=== PATIENT | female | born 1985 | race Caucasian/White ===

== ENCOUNTER 2017-01-17 10:54 | Emergency (ER) | payer MEDICAID ==
[~2017-01-17] VITALS: Ht 160 cm; Wt 114.7 kg
[~2017-01-17 10:54] MED LIST: CLON1TAB23 PO; DIVA250T PO; LEVE100020 PO; LEVE250T28 PO
[2017-01-17 11:09] VITALS: BP 138/68
[2017-01-17] MEDS ORDERED: METHOCARBAMOL 750 MG TABLET ONE (11:28)
[2017-01-17] MEDS ORDERED: HYDROcodone/APAP 5/325 TABLET ONE (11:28)
[2017-01-17] MEDS ORDERED: KETOROLAC 30 MG/1 ML ONE (11:29)
[2017-01-17] MEDS ORDERED: METHOCARBAMOL 750 MG TABLET PO ONE (11:30)
[2017-01-17] MEDS ORDERED: KETOROLAC 30 MG/1 ML IM ONE (11:30)
[2017-01-17] MEDS ORDERED: HYDROcodone/APAP 5/325 TABLET PO ONE (11:30)
[2017-01-17] MEDS ORDERED: DIAZEPAM 5 MG TABLET PO ONE (12:30)
[2017-01-17] MEDS ORDERED: LEVETIRACETAM 500 MG TABLET PO ONE (12:30)
[2017-01-17] MEDS ORDERED: LORazepam 2 MG/ML, 1ML ONE (13:04)
[2017-01-17] MEDS ORDERED: LORazepam 2 MG/ML, 1ML IVPush ONE (13:30)
[2017-01-17] MEDS ORDERED: MORPHINE SULFATE 4 MG/ML, 1ML ONE (14:19)
[2017-01-17] MEDS ORDERED: MORPHINE SULFATE 4 MG/ML, 1ML IVPush ONE (14:30)
== END 2017-01-17 14:32 | disposition home or self-care (01) ==
LOC: ED 12:37
DX: S13.4XXA Sprain of ligaments of cervical spine, initial encounter (principal); M47.22 Other spondylosis with radiculopathy, cervical region; M50.10 Cervical disc disorder with radiculopathy, unspecified cervical region; G40.909 Epilepsy, unspecified, not intractable, without status epilepticus; F41.9 Anxiety disorder, unspecified; F43.10 Post-traumatic stress disorder, unspecified; F17.200 Nicotine dependence, unspecified, uncomplicated; F15.10 Other stimulant abuse, uncomplicated; F60.3 Borderline personality disorder; Z88.1 Allergy status to other antibiotic agents; Z86.19 Personal history of other infectious and parasitic diseases; Z98.890 Other specified postprocedural states; V89.2XXA Person injured in unspecified motor-vehicle accident, traffic, initial encounter; Y93.89 Activity, other specified; Y99.8 Other external cause status; Y92.410 Unspecified street and highway as the place of occurrence of the external cause
CPT/HCPCS: 72050; 72141; 96372; 96374; 96375; 99284; J1885; J2060; J7512

== ENCOUNTER 2017-01-18 18:54 | Emergency (ER) | payer MEDICAID ==
[~2017-01-18] VITALS: Ht 160 cm; Wt 101.0 kg
[2017-01-18] MEDS ORDERED: SODIUM CHLORIDE 0.9% 1,000ML IVBOLUS ONE (20:00)
[2017-01-18] MEDS ORDERED: ONDANSETRON 2MG/ML, 2ML IVPush ONE (20:00)
[2017-01-18] MEDS ORDERED: ONDANSETRON 2MG/ML, 2ML ONE (20:39)
[2017-01-18] MEDS ORDERED: MORPHINE SULFATE 4 MG/ML, 1ML ONE ×2 (20:39→21:32)
[2017-01-18] MEDS: MORPHINE SULFATE 4 MG/ML, 1ML IVPush PRN ×2 (20:44→21:42)
[2017-01-18 21:00] LABS: HEMOGLOBIN 12.7 g/dL (11.7-16.4)
[2017-01-18 21:06] LABS: BLOOD UREA NITROGEN 16 mg/dL (7-18)
[2017-01-18 22:35] VITALS: BP 126/72
== END 2017-01-18 22:39 | disposition home or self-care (01) ==
LOC: ED 20:47
DX: S16.1XXA Strain of muscle, fascia and tendon at neck level, initial encounter (principal); G89.29 Other chronic pain; R11.2 Nausea with vomiting, unspecified; G40.909 Epilepsy, unspecified, not intractable, without status epilepticus; F41.1 Generalized anxiety disorder; F60.3 Borderline personality disorder; F43.10 Post-traumatic stress disorder, unspecified; M19.90 Unspecified osteoarthritis, unspecified site; X58.XXXA Exposure to other specified factors, initial encounter; Y93.89 Activity, other specified; Y99.8 Other external cause status; Y92.89 Other specified places as the place of occurrence of the external cause
CPT/HCPCS: 36415; 80048; 82040; 85025; 93005; 96361; 96374; 96375; 96376; 99285; J2405; J7030

== ENCOUNTER 2017-01-21 15:22 | Emergency (ER) | payer MEDICAID ==
[~2017-01-21] VITALS: Ht 160 cm; Wt 120.7 kg
[2017-01-21 15:30] VITALS: BP 125/94
[2017-01-21] MEDS ORDERED: HYDROcodone/APAP 5/325 TABLET PO ONE (17:00)
[2017-01-21] MEDS ORDERED: HYDROcodone/APAP 5/325 TABLET ONE (17:09)
== END 2017-01-21 17:23 | disposition home or self-care (01) ==
LOC: ED 16:14
DX: M47.892 Other spondylosis, cervical region (principal); G89.29 Other chronic pain; Z88.1 Allergy status to other antibiotic agents
CPT/HCPCS: 99283

== ENCOUNTER 2017-02-01 17:49 | Emergency (ER) | payer MEDICAID ==
[~2017-02-01] VITALS: Ht 160 cm; Wt 100.0 kg
[2017-02-01] MEDS ORDERED: HYDROmorphone 1 MG/ML, 1ML ONE (18:26)
[2017-02-01] MEDS ORDERED: HYDROmorphone 1 MG/ML, 1ML IM ONE (18:30)
[2017-02-01] MEDS ORDERED: KETOROLAC 30 MG/1 ML IM ONE (19:30)
[2017-02-01] MEDS ORDERED: KETOROLAC 30 MG/1 ML ONE (19:30)
[2017-02-01 19:38] VITALS: BP 138/79
[2017-02-01 19:45] LABS: HEMOGLOBIN 13.7 g/dL (11.7-16.4)
[2017-02-01 19:56] LABS: BLOOD UREA NITROGEN 14 mg/dL (7-18)
== END 2017-02-01 20:12 | disposition left against medical advice (07) ==
LOC: ED 19:13
DX: S29.012A Strain of muscle and tendon of back wall of thorax, initial encounter (principal); B18.2 Chronic viral hepatitis C; G40.909 Epilepsy, unspecified, not intractable, without status epilepticus; F43.10 Post-traumatic stress disorder, unspecified; F41.1 Generalized anxiety disorder; X50.9XXA Other and unspecified overexertion or strenuous movements or postures, initial encounter; Y93.89 Activity, other specified; Y92.89 Other specified places as the place of occurrence of the external cause; Y99.8 Other external cause status
CPT/HCPCS: 36415; 71101; 72072; 80048; 81003; 82040; 85025; 85651; 96372; 99285; J1170; J1885

== ENCOUNTER 2017-03-04 15:13 | Emergency (ER) | payer MEDICAID ==
[~2017-03-04] VITALS: Ht 160 cm; Wt 113.0 kg
[2017-03-04 15:25] VITALS: BP 113/68
[2017-03-04] MEDS ORDERED: CLON1TAB23 PO (15:44)
[2017-03-04] MEDS ORDERED: GABA300C10 PO (15:44)
[2017-03-04] MEDS ORDERED: METH750T87 PO (15:44)
[2017-03-04] MEDS ORDERED: OXYC-229 PO (15:44)
[2017-03-04] MEDS ORDERED: SULF1TAB3 PO (15:44)
[2017-03-04] MEDS ORDERED: NAPR500T PO (15:44)
[2017-03-04] MEDS ORDERED: LIDOCAINE-MPF 2% ,5ML ONE (15:54)
[2017-03-04] MEDS ORDERED: ONDANSETRON ODT 4 MG ONE (15:54)
[2017-03-04] MEDS ORDERED: NAPROXEN 500 MG TABLET PO ONE (16:00)
[2017-03-04] MEDS ORDERED: ONDANSETRON ODT 4 MG PO ONE (16:00)
[2017-03-04] MEDS ORDERED: LIDOCAINE 2%, 10ML INFIL ONE (16:00)
[2017-03-04] MEDS ORDERED: LIDOCAINE 1%, 20ML ONE ×3 (16:51→17:51)
[2017-03-04] MEDS ORDERED: BACITRACIN ZINC OINT 500U/GM, 0.9 GM ONE (18:16)
== END 2017-03-04 18:33 ==
LOC: ED 18:15
DX: S31.114A Laceration without foreign body of abdominal wall, left lower quadrant without penetration into peritoneal cavity, initial encounter (principal); B18.2 Chronic viral hepatitis C; G40.909 Epilepsy, unspecified, not intractable, without status epilepticus; F43.10 Post-traumatic stress disorder, unspecified; S71.111A Laceration without foreign body, right thigh, initial encounter; W27.8XXA Contact with other nonpowered hand tool, initial encounter; Y93.89 Activity, other specified; Y92.009 Unspecified place in unspecified non-institutional (private) residence as the place of occurrence of the external cause; Y99.8 Other external cause status; Z88.1 Allergy status to other antibiotic agents
CPT/HCPCS: 12002; 12032; 99284; Q0162

== ENCOUNTER 2017-05-10 13:17 | Emergency (ER) | payer MEDICAID ==
[~2017-05-10] VITALS: Ht 170.2 cm; Wt 80.0 kg
[~2017-05-10 13:17] MED LIST changes: +GABA300C10 PO; +METH750T87 PO; +NAPR500T PO; +OXYC-229 PO; +SULF1TAB3 PO
[2017-05-10] MEDS ORDERED: LIDOCAINE 1%, 20ML INFIL ONE (13:30)
[2017-05-10] MEDS ORDERED: HYDROmorphone 1 MG/ML, 1ML ONE ×2 (13:51→16:26)
[2017-05-10] MEDS ORDERED: PROMETHAZINE 25 MG/ML, 1ML ONE (13:51)
[2017-05-10] MEDS ORDERED: LORazepam 1MG TABLET ONE (13:51)
[2017-05-10] MEDS ORDERED: BUPIVACAINE/PF 0.25% INFIL ONE (14:00)
[2017-05-10] MEDS ORDERED: PROMETHAZINE 25 MG/ML, 1ML IM ONE (14:00)
[2017-05-10] MEDS ORDERED: HYDROmorphone 1 MG/ML, 1ML IM ONE (14:00)
[2017-05-10] MEDS ORDERED: LORazepam 1MG TABLET PO ONE (14:00)
[2017-05-10 14:01] LABS: ASPARTATE AMINO TRANSFERASE 15 U/L (15-37); BLOOD UREA NITROGEN 7 mg/dL (7-18)
[2017-05-10 14:08] LABS: ACETAMINOPHEN < 2 mcg/mL (10-30)
[2017-05-10] MEDS ORDERED: BUPIVACAINE/PF 0.5% ONE (14:17)
[2017-05-10 15:24] LABS: DAU SCREEN DISCLAIMER
[2017-05-10 15:45] LABS: PATH.CAST-FLAG NOT PRESENT; SPERM-FLAG NOT PRESENT; SRC-FLAG NOT PRESENT; XTAL-FLAG NOT PRESENT; YLC-FLAG NOT PRESENT
[2017-05-10 17:10] VITALS: BP 133/82
[2017-05-13] MEDS ORDERED: CITA40TA12 PO (20:37)
[2017-05-13] MEDS ORDERED: PHEN100C PO (20:37)
[2017-05-13] MEDS ORDERED: TRAZ100T15 PO (20:37)
[2017-05-13] MEDS ORDERED: ZIPR40CA2 PO (20:37)
== END 2017-05-10 17:12 | disposition home or self-care (01) ==
LOC: ED 16:01
DX: S31.119A Laceration without foreign body of abdominal wall, unspecified quadrant without penetration into peritoneal cavity, initial encounter (principal); F32.9 Major depressive disorder, single episode, unspecified; F43.10 Post-traumatic stress disorder, unspecified; W26.8XXA Contact with other sharp object(s), not elsewhere classified, initial encounter; Y93.89 Activity, other specified; Y92.89 Other specified places as the place of occurrence of the external cause; Y99.8 Other external cause status
CPT/HCPCS: 13101; 13102; 36415; 80053; 80185; 80307; 80329; 81001; 85025; 96372; 99285; J1170; J2550; G0480

== ENCOUNTER 2017-05-28 08:18 | Inpatient (IN) | payer MEDICAID ==
[2017-05-26 14:53] VITALS: BP 103/67
[~2017-05-28] VITALS: Ht 160 cm; Wt 128.0 kg
[~2017-05-28 08:18] MED LIST changes: +BACITRACIN OINT 500U/GM, 15 GM ONE; +BUPIVACAINE/PF-EPI 0.5% 1:200K ONE; +CITA40TA12 PO; +CLON2TAB PO; +CRAN500T2 PO; +HYDR-3240 PO; +METH500T97 PO; +MIRTAZAPINE PO; +MULT1TAB60 PO; +PHEN100C PO; +THROMBIN 5,000 UNIT VIAL TP ONE; +TRAZ100T15 PO; +ZIPR40CA2 PO
[2017-05-28] MEDS ORDERED: FENTANYL PF 250 MCG/5ML ONE (09:15)
[2017-05-28] MEDS ORDERED: KETAMINE 10 MG/ML, 20ML ONE (09:15)
[2017-05-28] MEDS ORDERED: MIDAZOLAM 1 MG/ML, 2ML ONE (09:15)
[2017-05-28] MEDS ORDERED: REMIFENTANIL 2 MG ONE (09:16)
[2017-05-28] MEDS ORDERED: LACTATED RINGERS 1,000 ML IV SCH (09:24)
[2017-05-28] MEDS ORDERED: LIDOCAINE 1%, 2ML SQ PRN (09:30)
[2017-05-28] MEDS ORDERED: CLINDAMYCIN 150 MG/ML, 6ML ONE (10:17)
[2017-05-28 10:20] LABS: HCG UR OBC PASS
[2017-05-28] MEDS ORDERED: SUCCINYLCHOLINE 20 MG/ML, 10ML ONE (10:24)
[2017-05-28] MEDS ORDERED: ONDANSETRON 2MG/ML, 2ML ONE ×2 (10:24→12:16)
[2017-05-28] MEDS ORDERED: PROPOFOL 10 MG/ML, 50ML ONE (10:24)
[2017-05-28] MEDS ORDERED: ROCURONIUM 10 MG/ML ONE (10:24)
[2017-05-28] MEDS ORDERED: PROPOFOL 10 MG/ML, 20ML ONE (10:24)
[2017-05-28] MEDS ORDERED: DEXAMETHASONE 4 MG/ML, 1ML ONE (10:24)
[2017-05-28] MEDS ORDERED: ALBUTEROL SULFATE 200 PUFFS/8.5 GR INH ONE (10:24)
[2017-05-28] MEDS ORDERED: EPHEDRINE 50 MG/ML, 1ML ONE (10:24)
[2017-05-28] MEDS ORDERED: BISACODYL 10 MG SUPP PR PRN (10:30)
[2017-05-28] MEDS ORDERED: PHARMACY MAY ADJ FOR RENAL FX MC PRN (10:30)
[2017-05-28] MEDS ORDERED: ONDANSETRON 2MG/ML, 2ML IVPush PRN (10:30)
[2017-05-28] MEDS ORDERED: MAGNESIUM HYDROXIDE 8%, 30ML UDC PO PRN (10:30)
[2017-05-28] MEDS ORDERED: SENNA/DOCUSATE TABLET PO PRN (10:30)
[2017-05-28] MEDS ORDERED: DIPHENHYDRAMINE 50 MG/ML, 1ML IVPush PRN (10:30)
[2017-05-28] MEDS: CLINDAMYCIN PMX 900MG/50ML 50 ML IV SCH ×2 (11:00→19:11)
[2017-05-28] MEDS ORDERED: OXYcodone 5 MG/5 ML ORAL.SOL UDC PO PRN (11:30)
[2017-05-28] MEDS ORDERED: ACETAMINOPHEN 325 MG TABLET PO PRN (11:30)
[2017-05-28] MEDS ORDERED: ACETAMINOPHEN 325 MG/10.15 ML UDC ONE (12:16)
[2017-05-28] MEDS ORDERED: FENTANYL PF 100 MCG/2ML ONE (12:16)
[2017-05-28] MEDS ORDERED: ACETAMINOPHEN 650 MG/20.3 ML UDC ONE (12:16)
[2017-05-28] MEDS ORDERED: OXYcodone 5 MG/5 ML ORAL.SOL UDC ONE (12:16)
[2017-05-28] MEDS: FENTANYL PF 100 MCG/2ML IV PRN ×2 (12:25→12:35)
[2017-05-28] MEDS ORDERED: HYDROmorphone 2 MG/ML, 1ML ONE (12:38)
[2017-05-28] MEDS: HYDROmorphone 1 MG/ML, 1ML IV PRN ×2 (12:45→13:00)
[2017-05-28] MEDS: morphine SULFATE 10 MG/ML, 1ML IVPush PRN ×2 (14:34→19:40)
[2017-05-28] MEDS: PROMETHAZINE 25 MG/ML, 1ML IM PRN (14:34)
[2017-05-28] MEDS ORDERED: [UNRECOGNIZED DRUG - REMARK] MC SCH (15:30)
[2017-05-28] MEDS: GABAPENTIN 300 MG CAPSULE PO SCH ×2 (16:00→21:51)
[2017-05-28] MEDS: OXYcodone/APAP 5/325MG TABLET PO PRN ×2 (16:47→21:46)
[2017-05-28] MEDS: D5%-0.9% NACL+KCL 20MEQ 1,000 ML IV SCH (19:41)
[2017-05-28 19:59] VITALS: BP 119/82
[2017-05-28] MEDS ORDERED: MIRTAZAPINE PO SCH (21:00)
[2017-05-28] MEDS ORDERED: MIRTAZAPINE 30 MG TAB.RAPDIS PO SCH (21:00)
[2017-05-28] MEDS: PHENYTOIN 100 MG CAPSULE PO SCH (21:45)
[2017-05-28] MEDS: METHOCARBAMOL 750 MG TABLET PO PRN (21:46)
[2017-05-28] MEDS: LEVETIRACETAM 500 MG TABLET PO SCH (21:46)
[2017-05-29] MEDS: OXYcodone/APAP 5/325MG TABLET PO PRN ×2 (01:05→05:50)
[2017-05-29] MEDS: morphine SULFATE 10 MG/ML, 1ML IVPush PRN (01:11)
[2017-05-29 01:12] VITALS: BP 119/79
[2017-05-29 02:41] VITALS: BP 100/69
[2017-05-29] MEDS: CLINDAMYCIN PMX 900MG/50ML 50 ML IV SCH (03:22)
[2017-05-29] MEDS: PROMETHAZINE 25 MG/ML, 1ML IM PRN (03:29)
[2017-05-29] MEDS: D5%-0.9% NACL+KCL 20MEQ 1,000 ML IV SCH (04:58)
[2017-05-29] MEDS ORDERED: OXYC-302 PO (05:05)
[2017-05-29] MEDS ORDERED: CLIN300C93 PO (05:06)
[2017-05-29] MEDS: METHOCARBAMOL 750 MG TABLET PO PRN (05:51)
[2017-05-29] MEDS: LEVETIRACETAM 500 MG TABLET PO SCH (08:14)
[2017-05-29] MEDS: PHENYTOIN 100 MG CAPSULE PO SCH (08:14)
[2017-05-29] MEDS ORDERED: GABAPENTIN 100 MG CAPSULE PO SCH (09:00)
== END 2017-05-29 08:00 | disposition home or self-care (01) | DRG 472 ==
LOC: OUT 08:18 → ORIP 10:25 → 4NOR 13:52
PROVIDERS: ADMIT Orthopaedic Surgery Orthopaedic Surgery of the Spine; ATTEND Orthopaedic Surgery Orthopaedic Surgery of the Spine
PROC: 0RB30ZZ Excision of Cervical Vertebral Disc, Open Approach (ICD-10-PCS; 2017-05-28)
PROC: 4A11X4G Monitoring of Peripheral Nervous Electrical Activity, Intraoperative, External Approach (ICD-10-PCS; 2017-05-28)
PROC: 0RG10A0 Fusion of Cervical Vertebral Joint with Interbody Fusion Device, Anterior Approach, Anterior Column, Open Approach (ICD-10-PCS; principal; 2017-05-28 10:30)
DX: M48.02 Spinal stenosis, cervical region (principal); Z68.42 Body mass index [BMI] 45.0-49.9, adult; E66.01 Morbid (severe) obesity due to excess calories; G40.909 Epilepsy, unspecified, not intractable, without status epilepticus; G89.29 Other chronic pain; F17.210 Nicotine dependence, cigarettes, uncomplicated; Z87.11 Personal history of peptic ulcer disease
CPT/HCPCS: 72040; 81025; 93005; 95938; 95941; C1713; J1100; J1170; J2250; J2405; J2550; J2704; J3010; J0330; J2270; J3480

== ENCOUNTER 2017-05-30 16:45 | Emergency (ER) | payer MEDICAID ==
[~2017-05-30] VITALS: Ht 160 cm; Wt 121.2 kg
[~2017-05-30 16:45] MED LIST changes: -BACITRACIN OINT 500U/GM, 15 GM ONE; -BUPIVACAINE/PF-EPI 0.5% 1:200K ONE; +CLIN300C93 PO; +OXYC-302 PO; -THROMBIN 5,000 UNIT VIAL TP ONE
[2017-05-30] MEDS ORDERED: ONDANSETRON ODT 4 MG ONE ×2 (17:29→19:01)
[2017-05-30] MEDS ORDERED: HYDROmorphone 2 MG/ML, 1ML ONE (17:29)
[2017-05-30] MEDS ORDERED: HYDROmorphone 1 MG/ML, 1ML IVPush PRN (17:30)
[2017-05-30] MEDS ORDERED: ONDANSETRON 2MG/ML, 2ML IVPush ONE (17:30)
[2017-05-30] MEDS ORDERED: ONDANSETRON ODT 4 MG PO ONE ×2 (18:00→19:00)
[2017-05-30] MEDS ORDERED: HYDROmorphone 1 MG/ML, 1ML IM ONE (18:00)
[2017-05-30] MEDS ORDERED: DEXAMETHASONE 4 MG TABLET PO ONE (19:00)
[2017-05-30] MEDS ORDERED: DEXAMETHASONE 4 MG/ML, 5ML ONE (19:01)
[2017-05-30 19:08] VITALS: BP 121/61
== END 2017-05-30 19:14 | disposition home or self-care (01) ==
LOC: ED 17:35
DX: G89.18 Other acute postprocedural pain (principal); M54.2 Cervicalgia; F17.200 Nicotine dependence, unspecified, uncomplicated; F43.10 Post-traumatic stress disorder, unspecified; M54.12 Radiculopathy, cervical region; Z86.19 Personal history of other infectious and parasitic diseases
CPT/HCPCS: 72040; 96372; 99284; J1170; Q0162

== ENCOUNTER 2017-06-07 18:49 | Emergency (ER) | payer MEDICAID ==
[~2017-06-07] VITALS: Ht 160 cm; Wt 117.0 kg
[2017-06-07] MEDS ORDERED: HYDROmorphone 1 MG/ML, 1ML ONE ×2 (19:21→20:16)
[2017-06-07] MEDS ORDERED: ONDANSETRON ODT 4 MG ONE (19:22)
[2017-06-07] MEDS ORDERED: KETOROLAC 30 MG/1 ML ONE (19:22)
[2017-06-07] MEDS ORDERED: KETOROLAC 30 MG/1 ML IM ONE (19:30)
[2017-06-07] MEDS ORDERED: ONDANSETRON ODT 4 MG PO ONE (19:30)
[2017-06-07] MEDS ORDERED: HYDROmorphone 1 MG/ML, 1ML IM ONE ×2 (19:30→20:30)
[2017-06-07 20:21] VITALS: BP 105/50
== END 2017-06-07 20:46 | disposition home or self-care (01) ==
LOC: ED 19:22
DX: M96.89 Other intraoperative and postprocedural complications and disorders of the musculoskeletal system (principal); M54.2 Cervicalgia; G43.909 Migraine, unspecified, not intractable, without status migrainosus; F43.10 Post-traumatic stress disorder, unspecified; F32.9 Major depressive disorder, single episode, unspecified
CPT/HCPCS: 96372; 99284; J1170; J1885; Q0162

== ENCOUNTER 2017-06-10 10:54 | Emergency (ER) | payer MEDICAID ==
[~2017-06-10] VITALS: Ht 160 cm; Wt 122.6 kg
[2017-06-10 10:58] VITALS: BP 119/79
[2017-06-10] MEDS ORDERED: MORPHINE SULFATE 4 MG/ML, 1ML IVPush PRN (12:30)
[2017-06-10] MEDS ORDERED: ONDANSETRON 2MG/ML, 2ML IVPush ONE (12:30)
[2017-06-10] MEDS ORDERED: SODIUM CHLORIDE 0.9% 1,000ML IVBOLUS ONE (12:30)
[2017-06-10] MEDS ORDERED: SODIUM CHLORIDE FLUSH 10ML SYR IVF ONE (12:30)
== END 2017-06-10 13:18 | disposition home or self-care (01) ==
LOC: ED 11:58
DX: T81.30XA Disruption of wound, unspecified, initial encounter (principal); G40.909 Epilepsy, unspecified, not intractable, without status epilepticus
CPT/HCPCS: 99281

== ENCOUNTER 2017-06-12 09:54 | Emergency (ER) | payer MEDICAID ==
[~2017-06-12] VITALS: Ht 160 cm; Wt 111.4 kg
[2017-06-12] MEDS ORDERED: HYDR-882 PO (10:21)
[2017-06-12] MEDS ORDERED: SODIUM CHLORIDE FLUSH 10ML SYR IVF ONE (10:30)
[2017-06-12] MEDS ORDERED: ONDANSETRON 2MG/ML, 2ML IVPush ONE (10:30)
[2017-06-12 11:00] LABS: BLOOD UREA NITROGEN 10 mg/dL (7-18)
[2017-06-12] MEDS ORDERED: ONDANSETRON ODT 4 MG ONE (11:06)
[2017-06-12] MEDS ORDERED: KETOROLAC 30 MG/1 ML ONE (11:28)
[2017-06-12] MEDS ORDERED: KETOROLAC 30 MG/1 ML IM ONE (11:30)
[2017-06-12] MEDS ORDERED: ONDANSETRON ODT 4 MG PO ONE (11:30)
[2017-06-12 11:38] LABS: HEMATOCRIT 42.3 % (34.6-47.8); HEMOGLOBIN 14.2 g/dL (11.7-16.4); WHITE BLOOD COUNT 11.3 x10^3/uL (3.4-10)
[2017-06-12 11:44] LABS: DIFF TOTAL CELLS COUNTED 100 CELL DIFF
[2017-06-12 11:49] LABS: VERIFY COUNTS? YES
[2017-06-12] MEDS ORDERED: PHENYTOIN SODIUM 1,000 MG in SODIUM CHLORIDE 0.9% 100 ML IV ONE (12:00)
[2017-06-12] MEDS ORDERED: FILTER 0.22 MICRON IV ONE (12:00)
[2017-06-12] MEDS ORDERED: PHENYTOIN 100 MG CAPSULE PO ONE (12:30)
[2017-06-12 12:31] VITALS: BP 121/76
== END 2017-06-12 12:33 | disposition home or self-care (01) ==
LOC: ED 11:30
DX: G40.909 Epilepsy, unspecified, not intractable, without status epilepticus (principal); T81.31XA Disruption of external operation (surgical) wound, not elsewhere classified, initial encounter; Z72.9 Problem related to lifestyle, unspecified; F17.200 Nicotine dependence, unspecified, uncomplicated
CPT/HCPCS: 36415; 70450; 72125; 80048; 80185; 82040; 85025; 93005; 96372; 99285; J1885; Q0162

== ENCOUNTER 2017-10-13 14:25 | Observation (INO) | payer MEDICAID ==
[~2017-10-13] VITALS: Ht 160 cm; Wt 110.0 kg
[~2017-10-13 14:25] MED LIST changes: +CLIN300C8 PO; -CLIN300C93 PO; +HYDR-882 PO; -OXYC-229 PO; +OXYC-307 PO; +SULF-169 PO; -SULF1TAB3 PO
[2017-10-13] MEDS ORDERED: ONDANSETRON 2MG/ML, 2ML ONE (14:55)
[2017-10-13] MEDS ORDERED: MORPHINE SULFATE 4 MG/ML, 1ML ONE ×3 (14:55→21:08)
[2017-10-13] MEDS: MORPHINE SULFATE 4 MG/ML, 1ML IVPush PRN ×2 (14:58→19:55)
[2017-10-13] MEDS ORDERED: SODIUM CHLORIDE FLUSH 10ML SYR IVF ONE (15:00)
[2017-10-13] MEDS ORDERED: ONDANSETRON 2MG/ML, 2ML IVPush ONE (15:00)
[2017-10-13 15:41] LABS: HEMATOCRIT 41.9 % (34.6-47.8); WHITE BLOOD COUNT 8.6 x10^3/uL (3.4-10)
[2017-10-13 15:52] LABS: ASPARTATE AMINO TRANSFERASE 18 U/L (15-37); BLOOD UREA NITROGEN 6 mg/dL (7-18)
[2017-10-13 15:59] LABS: ACETAMINOPHEN < 2 mcg/mL (10-30)
[2017-10-13] MEDS ORDERED: OMNIPAQUE 350 MG/ML, 100ML BOTTLE ONE (16:45)
[2017-10-13] MEDS ORDERED: ZIPRASIDONE 20 MG INJ IM PRN (17:00)
[2017-10-13] MEDS ORDERED: ONDANSETRON ODT 4 MG PO PRN (17:00)
[2017-10-13] MEDS ORDERED: POLYETHYLENE GLYCOL 17 GM PACKET PO PRN (17:00)
[2017-10-13] MEDS ORDERED: ACETAMINOPHEN 325 MG TABLET PO PRN (17:00)
[2017-10-13] MEDS ORDERED: ZIPRASIDONE 20MG CAPSULE PO PRN (17:00)
[2017-10-13] MEDS ORDERED: DOCUSATE 100 MG CAPSULE PO PRN (17:00)
[2017-10-13] MEDS ORDERED: MORPHINE SULFATE 4 MG/ML, 1ML IVPush PRN (19:00)
[2017-10-13] MEDS ORDERED: BACITRACIN ZINC OINT 500U/GM, 0.9 GM ONE (20:27)
[2017-10-13] MEDS ORDERED: MIRTAZAPINE PO SCH (21:00)
[2017-10-13] MEDS ORDERED: TEMPLATE NON-FORMULARY MED. (Levetiracetam** (Keppra**) 1,000 MG) PO SCH (21:00)
[2017-10-13] MEDS ORDERED: PHENYTOIN 100 MG CAPSULE PO SCH (21:00)
[2017-10-13] MEDS ORDERED: GABAPENTIN 300 MG CAPSULE PO SCH (21:00)
[2017-10-13] MEDS ORDERED: CLONAZEPAM 2 MG PO SCH (21:00)
[2017-10-13 21:40] LABS: DAU SCREEN DISCLAIMER
[2017-10-13 22:00] VITALS: BP 98/67
== END 2017-10-13 22:56 | disposition home or self-care (01) ==
LOC: ED 16:35 → INTOOBSV 16:45 → EDIP 16:45 → SUATTDRO 16:45
PROVIDERS: ADMIT Family Medicine; ATTEND Family Medicine
DX: S31.114A Laceration without foreign body of abdominal wall, left lower quadrant without penetration into peritoneal cavity, initial encounter (principal); B18.2 Chronic viral hepatitis C; E66.9 Obesity, unspecified; F15.90 Other stimulant use, unspecified, uncomplicated; F17.210 Nicotine dependence, cigarettes, uncomplicated; F32.9 Major depressive disorder, single episode, unspecified; F41.1 Generalized anxiety disorder; F43.10 Post-traumatic stress disorder, unspecified; F60.3 Borderline personality disorder; G40.909 Epilepsy, unspecified, not intractable, without status epilepticus; G89.29 Other chronic pain; M51.36 Other intervertebral disc degeneration, lumbar region; J44.9 Chronic obstructive pulmonary disease, unspecified; X78.8XXA Intentional self-harm by other sharp object, initial encounter; Y93.89 Activity, other specified; Y92.89 Other specified places as the place of occurrence of the external cause; Y99.8 Other external cause status; Z90.49 Acquired absence of other specified parts of digestive tract
CPT/HCPCS: 12032; 36415; 74177; 80053; 80307; 80329; 81003; 84703; 85025; 96374; 96375; 96376; 99285; G0378; J2405; Q9967; 12053; G0479; G0480

== ENCOUNTER 2017-10-30 07:30 | Inpatient (IN) | payer MEDICAID ==
[~2017-10-30] VITALS: Ht 160 cm; Wt 109.1 kg
[~2017-10-30 07:30] MED LIST changes: +BACITRACIN 50,000 UNIT ONE; +BUPIVACAINE/PF 0.5% ONE; +EPINEPHRINE 1 MG/ML, 1ML ONE; +NAPR-856 PO; -NAPR500T PO; +THROMBIN 5,000 UNIT VIAL TP ONE; +TRANEXAMIC ACID 100 MG/ML, 10ML ONE; +VANCOMYCIN 1,000 MG ONE
[2017-10-30 10:39] VITALS: BP 93/54
[2017-10-30 10:43] LABS: HCG UR SG 1.034 (1.003-1.030)
[2017-10-30 13:47] LABS: AMPHETAMINE SCREEN, URINE Positive (Negative); BARBITURATE SCREEN, URINE Negative (Negative); BENZODIAZEPINE SCREEN, URINE Positive (Negative); CANNABINOID SCREEN, URINE Positive (Negative); COCAINE SCREEN, URINE Negative (Negative); METHADONE SCREEN, URINE Negative (Negative); OPIATE SCREEN, URINE Positive (Negative)
== END 2017-10-30 10:45 | disposition home or self-care (01) | DRG 30 ==
LOC: ORIP 09:11
PROVIDERS: ADMIT Orthopaedic Surgery Orthopaedic Surgery of the Spine; ATTEND Orthopaedic Surgery Orthopaedic Surgery of the Spine
PROC: 0RG10AJ Fusion of Cervical Vertebral Joint with Interbody Fusion Device, Posterior Approach, Anterior Column, Open Approach (ICD-10-PCS; principal; 2017-10-30)
PROC: 01N10ZZ Release Cervical Nerve, Open Approach (ICD-10-PCS; 2017-10-30)
DX: M54.12 Radiculopathy, cervical region (principal); G40.909 Epilepsy, unspecified, not intractable, without status epilepticus
CPT/HCPCS: 80307; 81025; J0171; J3370; J3490; G0479

== ENCOUNTER 2018-07-09 03:07 | Emergency (ER) | payer MEDICAID, OTHER ==
[~2018-07-09] VITALS: Ht 160 cm; Wt 105.4 kg
[~2018-07-09 03:07] MED LIST changes: -BACITRACIN 50,000 UNIT ONE; -BUPIVACAINE/PF 0.5% ONE; -EPINEPHRINE 1 MG/ML, 1ML ONE; -THROMBIN 5,000 UNIT VIAL TP ONE; -TRANEXAMIC ACID 100 MG/ML, 10ML ONE; +TRAZ-137 PO; -TRAZ100T15 PO; -VANCOMYCIN 1,000 MG ONE
[2018-07-09 03:55] LABS: BASOPHILS # (AUTO) 0.06 x10^3/uL (0-0.1); BASOPHILS % (AUTO) 1 % (0-1); EOSINOPHILS # (AUTO) 0.02 x10^3/uL (0-0.4); EOSINOPHILS % (AUTO) 0 % (1-7); LYMPHOCYTES # (AUTO) 2.55 x10^3/uL (1-3.4); LYMPHOCYTES % (AUTO) 27 % (22-44); MD NO; MEAN CORPUSCULAR HEMOGLOBIN 30.1 pg (27.0-34.8); MEAN CORPUSCULAR HGB CONC 34.5 g/dL (32.4-35.8); MEAN CORPUSCULAR VOLUME 87.3 fL (80-100); MEAN PLATELET VOLUME 9.9 fL (7.4-10.4); MONOCYTES % (AUTO) 6 % (2-9); NEUTROPHILS # (AUTO) 6.37 x10^3/uL (1.8-6.8); NEUTROPHILS % (AUTO) 66 % (42-75); PLATELET COUNT 219 x10^3/uL (130-400); RED BLOOD COUNT 4.88 x10^6/uL (3.82-5.3); RED CELL DISTRIBUTION WIDTH 13.2 % (9.6-15.2)
[2018-07-09 04:03] LABS: ALBUMIN 3.8 g/dL (3.4-5.0); ANION GAP 9 mmol/L (5-15); CALCIUM 8.8 mg/dL (8.5-10.1); CHLORIDE 109 mmol/L (98-107); CREATININE 0.76 mg/dL (0.55-1.02)
[2018-07-09 04:06] LABS: TROPONIN I < 0.015 ng/mL (0.000-0.045)
[2018-07-09 04:27] VITALS: BP 136/78
== END 2018-07-09 04:53 | disposition home or self-care (01) ==
LOC: ED 03:50
DX: R07.89 Other chest pain (principal); F15.10 Other stimulant abuse, uncomplicated
CPT/HCPCS: 36415; 71045; 80048; 82040; 84484; 85025; 93005; 99285

== ENCOUNTER 2018-10-27 17:39 | Inpatient (IN) | payer MEDICAID ==
[~2018-10-27] VITALS: Ht 172.7 cm; Wt 109.9 kg
[~2018-10-27 17:39] MED LIST changes: +HYDR-3653 PO; -HYDR-882 PO
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
--- NOTE | 2018-10-27 18:04 | NUR ---
PT BIB [facility] FOR SA. PT APPARENTLY TOOK APTION 600MG 60 PILLS AT 1640 TODAY. PT A&OX4. PT WITH HX: PERSONALITY DISORDER, DDD, AND EPILEPSY. PT PLACED IN ROOM AND PLACED ON BP, CARDIAC AND CONT. PULSE OXIMETER. ASSESSMENT COMPLETED. OFFICER AT BEDSIDE. CALL LIGHT IN REACH AND 2 SIDE RAILS UP. AWAITING MD.
--- NOTE | 2018-10-27 18:38 | NUR ---
EKG DONE AND PRESENTED TO MD. JONES AT BEDSIDE. ROOM SECURED AND DOORS DOWN
[2018-10-27] MEDS ORDERED: ESLI400T PO (18:42)
--- NOTE | 2018-10-27 18:48 | NUR ---
REPORT GIVEN TO NADINE RUTHERFORD.
[2018-10-27] MEDS ORDERED: CHARCOAL/SORBITOL 50 GM/240 ML ONE (18:50)
[2018-10-27] MEDS ORDERED: CHARCOAL/SORBITOL 50 GM/240 ML PO ONE (19:00)
--- NOTE | 2018-10-27 19:00 | NUR ---
RICKIE RN: REPORT OF PT RECEIVED FROM SANGEETA MCCOY. PT MEDICATED PER DEC.
--- NOTE | 2018-10-27 19:04 | NUR ---
LUNCH RN: PT REQUESTING FOOD AT THIS TIME. PT INSTRUCTED ON NEED TO LET CHARCOAL SETTLE FIRST AND VERBALIZES UNDERSTANDING.
[2018-10-27 19:07] LABS: ALANINE AMINOTRANSFERASE 39 U/L (12-78); ALBUMIN 3.5 g/dL (3.4-5.0); ANION GAP 5 mmol/L (5-15); CHLORIDE 106 mmol/L (98-107); CREATININE 0.88 mg/dL (0.55-1.02); SALICYLATE LEVEL 2.1 mg/dL (2.8-20.0)
[2018-10-27 19:11] LABS: ACETAMINOPHEN < 2 mcg/mL (10-30); ALKALINE PHOSPHATASE 74 U/L (45-117); BILIRUBIN,TOTAL 0.5 mg/dL (0.2-1.0); MEAN CORPUSCULAR HEMOGLOBIN 30.2 pg (27.0-34.8); MEAN CORPUSCULAR HGB CONC 34.3 g/dL (32.4-35.8); MEAN CORPUSCULAR VOLUME 87.9 fL (80-100); MEAN PLATELET VOLUME 9.4 fL (7.4-10.4); PLATELET COUNT 219 x10^3/uL (130-400); RED BLOOD COUNT 4.95 x10^6/uL (3.82-5.3); RED CELL DISTRIBUTION WIDTH 13.4 % (9.6-15.2); TOTAL PROTEIN 7.1 g/dL (6.4-8.2)
--- NOTE | 2018-10-27 19:32 | NUR ---
LUNCH RN: PT URINE COLLECTED AND SENT TO LAB. PT VSS AND UPDATED IN EMR.
--- NOTE | 2018-10-27 19:33 | NUR ---
PT RESTING AT SIDE OF BED. DENIES NAUSEA AT THIS TIME. TOLD SHE COULD HAVE FOOD 30 MINUTES AFTER CHARCOL TO PREVENT GI DISTRESS. PROVIDED UA AND SENT TO LAB.
[2018-10-27 19:41] LABS: MD YES
[2018-10-27 19:45] LABS: HCG UR SG 1.028 (1.003-1.030)
[2018-10-27 19:45] LABS: EOS#(MANUAL) 0.11 x10^3/uL (0.0-0.4); EOS% (MANUAL) 1 % (1-7); LYMPH#(MANUAL) 4.98 x10^3/uL (1-3.4); LYMPHS% (MANUAL) 47 % (22-44); MONOS#(MANUAL) 0.74 x10^3/uL (0.3-2.7); MONOS% (MANUAL) 7 % (2-9); SEG#(MANUAL) 4.77 x10^3/uL (1.8-6.8); SEGS% (MANUAL) 45 % (42-75)
[2018-10-27 19:48] LABS: <PLATELET ESTIMATE> ADEQUATE; <PLT MORPHOLOGY> NORMAL PLT MORPH; <RBC MORPHOLOGY> NORMAL
--- NOTE | 2018-10-27 19:52 | NUR ---
PT GIVEN A SANDWHICH ON SAFETY PLATE WITH GRAPES. NO HIGH RISK UTENSILES USED. ONLY FINGER FOOD.
[2018-10-27 19:53] LABS: AMPHETAMINE SCREEN, URINE Positive (Negative); BARBITURATE SCREEN, URINE Negative (Negative); BENZODIAZEPINE SCREEN, URINE Negative (Negative); CANNABINOID SCREEN, URINE Positive (Negative); COCAINE SCREEN, URINE Negative (Negative); METHADONE SCREEN, URINE Negative (Negative); OPIATE SCREEN, URINE Negative (Negative)
[2018-10-27] MEDS ORDERED: BISACODYL 10 MG SUPP PR PRN (21:00)
[2018-10-27] MEDS ORDERED: ONDANSETRON ODT 4 MG PO PRN (21:00)
--- NOTE | 2018-10-27 21:47 | NUR ---
PT WAS FOUND LETHARGIC IN ROOM. PT IS NOW ONLY RESPONSIVE TO [PAIN STIMULI. DOES NOT WAKE UP. PT IS BREATHING ON HER OWN AND PROTECTING HER OWN AIRWAY. PT VSS ON THE MONITORS. TWO LARGE BORE PIVS PLACED AT THIS TIME. BG IS 106. PT CO2 ON CAPNOGRAPHY IS 42 AT THIS TIME. HOSPITALIST AWARE TO SEE PT AT THIS TIME. PER MD BARKLEY THIS PT CONDITION WAS EXPECTED PER THE DRUG TOXICITY. AT THIS TIME THERE IS NO REVERSAL AGENT. PT IS BEING CLOSELY MONITORED.
[2018-10-27 22:41] VITALS: BP 116/84
--- NOTE | 2018-10-27 22:41 | NUR ---
MIESHA RN INFORMED OF PTS LOW THRESHOLD FOR ICU TRANSFER.
[2018-10-27] MEDS: SODIUM CHLORIDE 0.9% 1,000 ML IV SCH (23:06)
[2018-10-27] MEDS: HEPARIN 5,000 UNITS/ML, 1ML SQ SCH (23:59)
[2018-10-28 00:59] VITALS: BP 94/64
[2018-10-28 05:23] LABS: MEAN CORPUSCULAR HEMOGLOBIN 30.1 pg (27.0-34.8); MEAN CORPUSCULAR HGB CONC 34.1 g/dL (32.4-35.8); MEAN CORPUSCULAR VOLUME 88.2 fL (80-100); MEAN PLATELET VOLUME 9.1 fL (7.4-10.4); PLATELET COUNT 188 x10^3/uL (130-400); RED BLOOD COUNT 4.47 x10^6/uL (3.82-5.3); RED CELL DISTRIBUTION WIDTH 13.8 % (9.6-15.2)
[2018-10-28 05:32] LABS: CHLORIDE 109 mmol/L (98-107)
[2018-10-28 05:42] LABS: ALANINE AMINOTRANSFERASE 34 U/L (12-78); ALBUMIN 3.2 g/dL (3.4-5.0); ALKALINE PHOSPHATASE 68 U/L (45-117); ANION GAP 6 mmol/L (5-15); BILIRUBIN,TOTAL 0.2 mg/dL (0.2-1.0); CALCIUM 7.9 mg/dL (8.5-10.1); CREATININE 0.79 mg/dL (0.55-1.02); TOTAL PROTEIN 6.6 g/dL (6.4-8.2)
[2018-10-28] MEDS: SODIUM CHLORIDE 0.9% 1,000 ML IV SCH ×3 (05:45→21:33)
[2018-10-28 05:49] LABS: BASOPHILS # (AUTO) 0.05 x10^3/uL (0-0.1); BASOPHILS % (AUTO) 1 % (0-1); EOSINOPHILS # (AUTO) 0.16 x10^3/uL (0-0.4); EOSINOPHILS % (AUTO) 2 % (1-7); LYMPHOCYTES # (AUTO) 5.67 x10^3/uL (1-3.4); LYMPHOCYTES % (AUTO) 62 % (22-44); MD SCAN; MONOCYTES # (AUTO) 0.77 x10^3/uL (0.2-0.8); MONOCYTES % (AUTO) 8 % (2-9); NEUTROPHILS # (AUTO) 2.45 x10^3/uL (1.8-6.8); NEUTROPHILS % (AUTO) 27 % (42-75)
[2018-10-28 08:29] VITALS: BP 104/72
[2018-10-28] MEDS: SENNA/DOCUSATE TABLET PO SCH (08:54)
[2018-10-28] MEDS: HEPARIN 5,000 UNITS/ML, 1ML SQ SCH ×2 (08:54→16:11)
[2018-10-28] MEDS: NICOTINE 7 MG/24 HR PATCH.TD24 TD SCH (12:00)
[2018-10-28 12:11] VITALS: BP 112/76
[2018-10-28 19:23] VITALS: BP 94/63
[2018-10-29 00:06] VITALS: BP 94/60
[2018-10-29] MEDS: HEPARIN 5,000 UNITS/ML, 1ML SQ SCH ×3 (00:35→16:26)
[2018-10-29] MEDS: SODIUM CHLORIDE 0.9% 1,000 ML IV SCH (05:42)
[2018-10-29 05:48] LABS: BASOPHILS # (AUTO) 0.06 x10^3/uL (0-0.1); BASOPHILS % (AUTO) 1 % (0-1); EOSINOPHILS # (AUTO) 0.07 x10^3/uL (0-0.4); EOSINOPHILS % (AUTO) 1 % (1-7); LYMPHOCYTES # (AUTO) 4.51 x10^3/uL (1-3.4); LYMPHOCYTES % (AUTO) 47 % (22-44); MD NO; MEAN CORPUSCULAR HEMOGLOBIN 29.9 pg (27.0-34.8); MEAN CORPUSCULAR HGB CONC 34.2 g/dL (32.4-35.8); MEAN CORPUSCULAR VOLUME 87.3 fL (80-100); MEAN PLATELET VOLUME 9.6 fL (7.4-10.4); MONOCYTES # (AUTO) 0.77 x10^3/uL (0.2-0.8); MONOCYTES % (AUTO) 8 % (2-9); NEUTROPHILS # (AUTO) 4.18 x10^3/uL (1.8-6.8); NEUTROPHILS % (AUTO) 44 % (42-75); PLATELET COUNT 168 x10^3/uL (130-400); RED BLOOD COUNT 4.42 x10^6/uL (3.82-5.3); RED CELL DISTRIBUTION WIDTH 13.6 % (9.6-15.2)
[2018-10-29 05:50] LABS: ALBUMIN 2.8 g/dL (3.4-5.0); ANION GAP 7 mmol/L (5-15); CALCIUM 7.6 mg/dL (8.5-10.1); CHLORIDE 112 mmol/L (98-107)
[2018-10-29 05:54] LABS: ALANINE AMINOTRANSFERASE 30 U/L (12-78); ALKALINE PHOSPHATASE 79 U/L (45-117); BILIRUBIN,TOTAL 0.4 mg/dL (0.2-1.0); CREATININE 0.57 mg/dL (0.55-1.02); TOTAL PROTEIN 6.3 g/dL (6.4-8.2)
[2018-10-29 06:11] VITALS: BP 93/62
[2018-10-29] MEDS: SENNA/DOCUSATE TABLET PO SCH (07:17)
[2018-10-29] MEDS: NICOTINE 7 MG/24 HR PATCH.TD24 TD SCH (11:15)
[2018-10-29] MEDS ORDERED: IBUPROFEN 200 MG TABLET PO PRN (11:30)
[2018-10-29] MEDS ORDERED: LIDODERM 5% PATCH TD PRN (11:30)
[2018-10-29] MEDS ORDERED: POTASSIUM CHLORIDE 20 MEQ TAB.ER.PRT PO ONE (12:00)
[2018-10-29 13:38] VITALS: BP 108/70
[2018-10-29 18:35] VITALS: BP 106/64
[2018-10-29] MEDS ORDERED: ESLICARBAZEPINE ACETATE 600 MG PO SCH (21:00)
[2018-10-30] MEDS: HEPARIN 5,000 UNITS/ML, 1ML SQ SCH ×3 (01:14→17:49)
[2018-10-30 01:15] VITALS: BP 112/74
[2018-10-30 07:35] VITALS: BP 96/58
[2018-10-30] MEDS: SENNA/DOCUSATE TABLET PO SCH (09:00)
[2018-10-30] MEDS: NICOTINE 7 MG/24 HR PATCH.TD24 TD SCH (12:32)
[2018-10-30 14:05] VITALS: BP 84/56
[2018-10-30 19:31] VITALS: BP 105/67
[2018-10-30] MEDS: ESLICARBAZEPINE ACETATE PO SCH (21:00)
[2018-10-31] MEDS: HEPARIN 5,000 UNITS/ML, 1ML SQ SCH ×3 (08:00→16:00)
[2018-10-31] MEDS: SENNA/DOCUSATE TABLET PO SCH (09:00)
[2018-10-31 10:00] VITALS: BP 94/65
[2018-10-31] MEDS: NICOTINE 7 MG/24 HR PATCH.TD24 TD SCH ×2 (12:00→15:26)
[2018-10-31] MEDS: POLYETHYLENE GLYCOL 17 GM PACKET PO PRN (14:30)
[2018-10-31 19:29] VITALS: BP 109/66
[2018-10-31] MEDS: ESLICARBAZEPINE ACETATE PO SCH (20:51)
[2018-10-31] MEDS ORDERED: TRAZODONE 100MG TABLET PO ONE (21:00)
[2018-11-01] MEDS: HEPARIN 5,000 UNITS/ML, 1ML SQ SCH ×3 (08:00→16:00)
[2018-11-01 08:06] VITALS: BP 90/53
[2018-11-01] MEDS: SENNA/DOCUSATE TABLET PO SCH (08:45)
[2018-11-01] MEDS: POLYETHYLENE GLYCOL 17 GM PACKET PO PRN (10:36)
[2018-11-01] MEDS ORDERED: LORazepam 1MG TABLET PO PRN (14:30)
[2018-11-01] MEDS: ACETAMINOPHEN 325 MG TABLET PO PRN (15:00)
[2018-11-01 19:49] VITALS: BP 96/66
[2018-11-01] MEDS ORDERED: ZIPRASIDONE 20 MG INJ IM ONE (20:00)
[2018-11-01 20:37] VITALS: BP 101/70
[2018-11-01] MEDS: ESLICARBAZEPINE ACETATE PO SCH (20:48)
[2018-11-02 08:17] VITALS: BP 87/58
[2018-11-02] MEDS: HEPARIN 5,000 UNITS/ML, 1ML SQ SCH ×3 (08:44→16:00)
[2018-11-02] MEDS: SENNA/DOCUSATE TABLET PO SCH (08:47)
[2018-11-02 09:28] VITALS: BP 79/50
[2018-11-02] MEDS: ACETAMINOPHEN 325 MG TABLET PO PRN ×3 (12:12→23:42)
[2018-11-02 12:35] VITALS: BP 101/66
[2018-11-02] MEDS: NICOTINE 7 MG/24 HR PATCH.TD24 TD SCH (13:42)
[2018-11-02] MEDS ORDERED: ZIPRASIDONE 20 MG INJ IM ONE (18:00)
[2018-11-02] MEDS: ESLICARBAZEPINE ACETATE PO SCH (21:00)
[2018-11-02] MEDS: TRAZODONE 100MG TABLET PO PRN (22:32)
[2018-11-02 23:29] VITALS: BP 133/80
[2018-11-03] MEDS: TRAZODONE 100MG TABLET PO PRN ×2 (02:25→20:17)
[2018-11-03 07:50] VITALS: BP 78/62
[2018-11-03] MEDS: HEPARIN 5,000 UNITS/ML, 1ML SQ SCH ×3 (08:00→16:00)
[2018-11-03] MEDS: SENNA/DOCUSATE TABLET PO SCH (08:52)
[2018-11-03] MEDS ORDERED: LORazepam 1MG TABLET PO ONE (11:00)
[2018-11-03] MEDS: NICOTINE 7 MG/24 HR PATCH.TD24 TD SCH (12:09)
[2018-11-03] MEDS: ACETAMINOPHEN 325 MG TABLET PO PRN (17:45)
[2018-11-03 19:37] VITALS: BP 140/86
[2018-11-03] MEDS: ESLICARBAZEPINE ACETATE PO SCH (20:04)
[2018-11-04] MEDS: SENNA/DOCUSATE TABLET PO SCH (07:42)
[2018-11-04] MEDS: HEPARIN 5,000 UNITS/ML, 1ML SQ SCH ×2 (08:00)
[2018-11-04 08:03] VITALS: BP 112/64
[2018-11-04] MEDS: NICOTINE 7 MG/24 HR PATCH.TD24 TD SCH (14:47)
[2018-11-04] MEDS: ACETAMINOPHEN 325 MG TABLET PO PRN (14:47)
[2018-11-04] MEDS ORDERED: LORazepam 1MG TABLET PO ONE (15:00)
== END 2018-11-04 16:00 | disposition home or self-care (01) | DRG 918 ==
LOC: ED 18:33 → EDIP 20:33 → 5SO 22:33 → 3NE 10-29 17:41 → 2N 10-30 13:51
PROVIDERS: ADMIT Internal Medicine; ATTEND Hospitalist
DX: T50.992A Poisoning by other drugs, medicaments and biological substances, intentional self-harm, initial encounter (principal); Y92.89 Other specified places as the place of occurrence of the external cause; B18.2 Chronic viral hepatitis C; F15.90 Other stimulant use, unspecified, uncomplicated; F17.200 Nicotine dependence, unspecified, uncomplicated; F32.9 Major depressive disorder, single episode, unspecified; F60.3 Borderline personality disorder; F91.9 Conduct disorder, unspecified; G40.909 Epilepsy, unspecified, not intractable, without status epilepticus; G89.29 Other chronic pain; J44.9 Chronic obstructive pulmonary disease, unspecified; K59.00 Constipation, unspecified; Z91.5 Personal history of self-harm; Z98.1 Arthrodesis status; Z88.1 Allergy status to other antibiotic agents; Z91.018 Allergy to other foods
CPT/HCPCS: 36415; 80053; 80164; 80185; 80307; 80329; 81025; 82962; 85025; 93005; 99285; G0378; J1644; J3486; Q0162; G0480; J7030

== ENCOUNTER 2019-06-01 23:21 | Emergency (ER) | payer MEDICAID ==
[~2019-06-01] VITALS: Ht 160 cm; Wt 107.0 kg
[~2019-06-01 23:21] MED LIST changes: +ESLI400T PO
[2019-06-01] MEDS ORDERED: ONDANSETRON ODT 4 MG ONE (23:42)
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
[2019-06-02] MEDS ORDERED: ONDANSETRON ODT 4 MG PO ONE
[2019-06-02 00:02] LABS: BASOPHILS # (AUTO) 0.03 x10^3/uL (0-0.1); BASOPHILS % (AUTO) 0 % (0-1); EOSINOPHILS # (AUTO) 0.08 x10^3/uL (0-0.4); EOSINOPHILS % (AUTO) 1 % (1-7); LYMPHOCYTES # (AUTO) 3.27 x10^3/uL (1-3.4); LYMPHOCYTES % (AUTO) 43 % (22-44); MD NO; MEAN CORPUSCULAR HEMOGLOBIN 30.2 pg (27.0-34.8); MEAN CORPUSCULAR HGB CONC 33.3 g/dL (32.4-35.8); MEAN CORPUSCULAR VOLUME 90.5 fL (80-100); MEAN PLATELET VOLUME 9.4 fL (7.4-10.4); MONOCYTES % (AUTO) 8 % (2-9); NEUTROPHILS # (AUTO) 3.67 x10^3/uL (1.8-6.8); NEUTROPHILS % (AUTO) 48 % (42-75); PLATELET COUNT 187 x10^3/uL (130-400); RED BLOOD COUNT 4.67 x10^6/uL (3.82-5.3); RED CELL DISTRIBUTION WIDTH 14.1 % (9.6-15.2)
[2019-06-02 00:03] LABS: ALBUMIN 3.3 g/dL (3.4-5.0); ANION GAP 4 mmol/L (5-15); CALCIUM 8.8 mg/dL (8.5-10.1); CHLORIDE 111 mmol/L (98-107)
--- NOTE | 2019-06-02 00:03 | NUR ---
BREAK RN: ASSUMING CARE OF PT. FOR PRIMARY RN LUNCH BREAK. PT. BACK FROM CT AT THIS TIME. SEZIURE PRECAUTIONS IN PLACE. CALL LIGHT IN REACH. ALL SAFETY MEASURES OBSERVED.
[2019-06-02] MEDS ORDERED: LIDOCAINE-MPF 1%, 5ML ONE (00:43)
[2019-06-02] MEDS ORDERED: KETOROLAC 30 MG/1 ML ONE (00:45)
--- NOTE | 2019-06-02 00:49 | NUR ---
Nikki castro, at bedside for tomás. Tolerates well. vitals stable.
--- NOTE | 2019-06-02 01:36 | NUR ---
Pt stable for discharge home, Woundcare reviewed, verbalizes understanding. Pt ambulates to discharge desk w/ steady gait, vitals stable.
[2019-06-02 01:37] VITALS: BP 114/71
== END 2019-06-02 01:39 | disposition home or self-care (01) ==
LOC: ED 23:36
DX: G40.309 Generalized idiopathic epilepsy and epileptic syndromes, not intractable, without status epilepticus (principal); S06.0X0A Concussion without loss of consciousness, initial encounter; S01.01XA Laceration without foreign body of scalp, initial encounter; F32.9 Major depressive disorder, single episode, unspecified; F41.1 Generalized anxiety disorder; F43.10 Post-traumatic stress disorder, unspecified; Z72.9 Problem related to lifestyle, unspecified; X58.XXXA Exposure to other specified factors, initial encounter; Y93.89 Activity, other specified; Y92.89 Other specified places as the place of occurrence of the external cause; Y99.8 Other external cause status
CPT/HCPCS: 12002; 36415; 70450; 80048; 82040; 85025; 99284; Q0162

== ENCOUNTER 2019-09-24 16:53 | Emergency (ER) | payer MEDICAID ==
[~2019-09-24] VITALS: Ht 167.6 cm; Wt 110.0 kg
--- NOTE | 2019-09-24 17:04 | NUR ---
BELASHLEYS IN LOCKER, ONE BAG
[2019-09-24 17:09] VITALS: BP 97/59
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
[2019-09-24] MEDS ORDERED: L.E.T SOLUTION TP ONE ×2 (17:41→18:00)
[2019-09-24] MEDS ORDERED: LORazepam 1MG TABLET ONE (17:41)
[2019-09-24] MEDS ORDERED: OXYcodone/APAP 5/325MG TABLET ONE (17:41)
--- NOTE | 2019-09-24 17:45 | NUR ---
PATIENT YELLING AT STAFF "YOU ALL AREN'T DOING ANYTHING, JUST LEAVE! CLOSE THE DOOR AND GET THE FUCK OUT". SECURITY TO ROOM, DEESCALTED PATIENT, PATIENT THEN STATED SHE WOULD TAKE THE MEDICATION MD WAS OFFERING TO PRESCRIBE AN ORDER FOR. SITTER AT DOOR.
--- NOTE | 2019-09-24 17:45 | NUR ---
PATIENT MEDICATED PER EMAR AND WAS COOPERATIVE.
[2019-09-24 17:55] LABS: AMPHETAMINE SCREEN, URINE Positive (Negative); BARBITURATE SCREEN, URINE Negative (Negative); BENZODIAZEPINE SCREEN, URINE Negative (Negative); CANNABINOID SCREEN, URINE Positive (Negative); COCAINE SCREEN, URINE Negative (Negative); METHADONE SCREEN, URINE Negative (Negative); OPIATE SCREEN, URINE Negative (Negative)
[2019-09-24 17:58] LABS: MEAN CORPUSCULAR HEMOGLOBIN 30.2 pg (27.0-34.8); MEAN CORPUSCULAR HGB CONC 32.8 g/dL (32.4-35.8); MEAN CORPUSCULAR VOLUME 92.2 fL (80-100); MEAN PLATELET VOLUME 9.8 fL (7.4-10.4); PLATELET COUNT 200 x10^3/uL (130-400); RED BLOOD COUNT 4.82 x10^6/uL (3.82-5.3); RED CELL DISTRIBUTION WIDTH 13.4 % (9.6-15.2)
[2019-09-24] MEDS ORDERED: LORazepam 1MG TABLET PO ONE (18:00)
[2019-09-24] MEDS ORDERED: OXYcodone/APAP 5/325MG TABLET PO ONE (18:00)
[2019-09-24 18:09] LABS: ALANINE AMINOTRANSFERASE 53 U/L (12-78); ALBUMIN 3.2 g/dL (3.4-5.0); ANION GAP 5 mmol/L (5-15); CALCIUM 8.5 mg/dL (8.5-10.1); CHLORIDE 111 mmol/L (98-107); CREATININE 0.72 mg/dL (0.55-1.02); SALICYLATE LEVEL 2.6 mg/dL (2.8-20.0)
[2019-09-24 18:12] LABS: ALKALINE PHOSPHATASE 72 U/L (45-117); BILIRUBIN,TOTAL 0.5 mg/dL (0.2-1.0); TOTAL PROTEIN 7.1 g/dL (6.4-8.2)
[2019-09-24 18:30] LABS: MD YES
[2019-09-24 18:33] LABS: <PLATELET ESTIMATE> ADEQUATE; <PLT MORPHOLOGY> NORMAL PLT MORPH; <RBC MORPHOLOGY> NORMAL; LYMPH#(MANUAL) 5.67 x10^3/uL (1-3.4); LYMPHS% (MANUAL) 53 % (22-44); MONOS#(MANUAL) 0.32 x10^3/uL (0.3-2.7); MONOS% (MANUAL) 3 % (2-9); SEG#(MANUAL) 4.71 x10^3/uL (1.8-6.8); SEGS% (MANUAL) 44 % (42-75)
--- NOTE | 2019-09-24 19:01 | NUR ---
RECEIVED REPORT FROM DEVIN Bae ASSUMING CARE AT THIS TIME.
--- NOTE | 2019-09-24 19:05 | NUR ---
DIET TRAY DELIVERED TO PT.
--- NOTE | 2019-09-24 19:21 | NUR ---
EMT APPLYING STERI-STRIPS ORDERED. ALL DC QUESTIONS ANSWERED AT THIS TIME. TAXI VOUCHER GIVEN TO PT FOR RIDE HOME.
--- NOTE | 2019-09-24 20:46 | NUR ---
LATE ENTRY: PT ONE BAG OF BELONGINGS RETURNED TO PT PRIOR TO DC.
== END 2019-09-24 19:36 | disposition home or self-care (01) ==
LOC: ED 17:54
DX: S31.119A Laceration without foreign body of abdominal wall, unspecified quadrant without penetration into peritoneal cavity, initial encounter (principal); F60.9 Personality disorder, unspecified; F12.10 Cannabis abuse, uncomplicated; F15.10 Other stimulant abuse, uncomplicated; X78.9XXA Intentional self-harm by unspecified sharp object, initial encounter; Y93.89 Activity, other specified; Y92.9 Unspecified place or not applicable; Y99.8 Other external cause status
CPT/HCPCS: 36415; 80053; 80307; 85025; 99283

== ENCOUNTER 2020-02-06 01:29 | Inpatient (IN) | payer MEDICAID ==
[~2020-02-06] VITALS: Ht 160 cm; Wt 125.3 kg
[~2020-02-06 01:29] MED LIST changes: -TRAZ-137 PO; +TRAZ-175 PO
[2020-02-06 02:11] LABS: BASOPHILS # (AUTO) 0.08 x10^3/uL (0-0.1); BASOPHILS % (AUTO) 1 % (0-1); EOSINOPHILS # (AUTO) 0.01 x10^3/uL (0-0.4); EOSINOPHILS % (AUTO) 0 % (1-7); LYMPHOCYTES # (AUTO) 4.48 x10^3/uL (1-3.4); LYMPHOCYTES % (AUTO) 48 % (22-44); MD NO; MEAN CORPUSCULAR HEMOGLOBIN 29.9 pg (27.0-34.8); MEAN CORPUSCULAR HGB CONC 33.7 g/dL (32.4-35.8); MEAN CORPUSCULAR VOLUME 88.9 fL (80-100); MEAN PLATELET VOLUME 8.9 fL (7.4-10.4); MONOCYTES % (AUTO) 8 % (2-9); NEUTROPHILS # (AUTO) 4.17 x10^3/uL (1.8-6.8); NEUTROPHILS % (AUTO) 44 % (42-75); PLATELET COUNT 247 x10^3/uL (130-400); RED BLOOD COUNT 4.05 x10^6/uL (3.82-5.3); RED CELL DISTRIBUTION WIDTH 13.5 % (9.6-15.2)
[2020-02-06 02:24] LABS: ALANINE AMINOTRANSFERASE 53 U/L (12-78); ALBUMIN 3.1 g/dL (3.4-5.0); ANION GAP 5 mmol/L (5-15); CALCIUM 8.4 mg/dL (8.5-10.1); CHLORIDE 110 mmol/L (98-107); CREATININE 0.64 mg/dL (0.55-1.02); SALICYLATE LEVEL 3.6 mg/dL (2.8-20.0)
[2020-02-06 02:29] LABS: ALKALINE PHOSPHATASE 86 U/L (45-117); BILIRUBIN,TOTAL 0.1 mg/dL (0.2-1.0)
--- NOTE | 2020-02-06 03:16 | NUR ---
pt provided urine cup for sample, stated she is unable to urinate at his time. pt requesting medication for pain and nausea, will update rn and erp
--- NOTE | 2020-02-06 03:25 | NUR ---
called JOVITA coffman and he is working on prior auth for the pt
--- NOTE | 2020-02-06 03:32 | NUR ---
assisted pt to rr via w/c. pt now resting on [employer], monitors in place, siderails up x2, call light within reach. urine sample taken to lab
[2020-02-06 03:53] LABS: AMPHETAMINE SCREEN, URINE Positive (Negative); BARBITURATE SCREEN, URINE Positive (Negative); BENZODIAZEPINE SCREEN, URINE Negative (Negative); CANNABINOID SCREEN, URINE Negative (Negative); COCAINE SCREEN, URINE Negative (Negative); METHADONE SCREEN, URINE Negative (Negative); OPIATE SCREEN, URINE Negative (Negative)
[2020-02-06] MEDS ORDERED: ACETAMINOPHEN 325 MG TABLET ONE (03:59)
[2020-02-06] MEDS ORDERED: ONDANSETRON ODT 4 MG ONE (03:59)
[2020-02-06] MEDS ORDERED: ONDANSETRON ODT 4 MG PO ONE (04:00)
[2020-02-06] MEDS ORDERED: ACETAMINOPHEN 325 MG TABLET PO ONE (04:00)
--- NOTE | 2020-02-06 04:15 | NUR ---
REPORT RECEIVED FROM SANGEETA POLLARD. ASSUMED CARE OF PT. PT MOVED TO ROOM 2. ROOM SECURE, SITTER OUTSIDE DOOR.
[2020-02-06] MEDS ORDERED: KETOROLAC 30 MG/1 ML ONE (04:48)
[2020-02-06] MEDS ORDERED: KETOROLAC 30 MG/1 ML IVPush ONE (05:00)
--- NOTE | 2020-02-06 05:10 | NUR ---
PT MEDICATED PER EMAR. 5 RIGHTS ADDRESSED.
--- NOTE | 2020-02-06 05:33 | NUR ---
PT SLEEPING. RESPIRATIONS EVEN AND UNLABORED. SITTER OUTSIDE DOOR MONTIORING PT. ROOM REMAINS SECURE.
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
[2020-02-06] MEDS ORDERED: CLINDAMYCIN PMX 600MG/50ML 50 ML IV ONE (06:00)
[2020-02-06] MEDS ORDERED: CLINDAMYCIN PMX 600MG/50ML 50 ML ONE (06:20)
--- NOTE | 2020-02-06 06:29 | NUR ---
PT WOKEN UP TO GIVE ABX. PT MEDICATED PER EMAR. 5 RIGHTS ADDRESSED.
--- NOTE | 2020-02-06 06:41 | NUR ---
ATTEMPTED TO CALL REPORT, SPOKE TO THE TEACHER TUTOR AND THE DAY SHIFT RN WILL BE TAKING REPORT FOR THIS PATIENT.
[2020-02-06] MEDS ORDERED: POLYETHYLENE GLYCOL 17 GM PACKET PO PRN (07:00)
[2020-02-06] MEDS ORDERED: TRAZODONE 50MG TABLET PO PRN (07:00)
[2020-02-06] MEDS ORDERED: ONDANSETRON ODT 4 MG PO PRN (07:00)
[2020-02-06] MEDS ORDERED: DOCUSATE 100 MG CAPSULE PO PRN (07:00)
[2020-02-06] MEDS ORDERED: ACETAMINOPHEN 325 MG TABLET PO PRN (07:00)
[2020-02-06] MEDS ORDERED: LORazepam 1MG TABLET PO PRN (07:00)
[2020-02-06] MEDS ORDERED: IBUPROFEN 600 MG TABLET PO PRN (07:00)
[2020-02-06] MEDS ORDERED: LABETALOL 5MG/ML, 20ML IVPush PRN (07:00)
[2020-02-06] MEDS ORDERED: hydrALAzine 20 MG/ML, 1ML IVPush PRN (07:00)
[2020-02-06] MEDS ORDERED: METOCLOPRAMIDE 5 MG/ML, 2ML IVPush PRN (07:00)
[2020-02-06 07:16] VITALS: BP 132/77
--- NOTE | 2020-02-06 07:23 | NUR ---
Pt transfered at 0706 on [facility] from ED to floor.
[2020-02-06] MEDS: CLINDAMYCIN PMX 600MG/50ML 50 ML IV SCH ×4 (08:00→23:54)
[2020-02-06] MEDS ORDERED: LIDODERM 5% PATCH TD PRN (08:00)
[2020-02-06] MEDS: NICOTINE 21 MG/24 HR PATCH.TD24 TD SCH (10:21)
[2020-02-06] MEDS: ENOXAPARIN 40 MG/0.4 ML SQ SCH (10:22)
[2020-02-06 12:30] LABS: MICROSCOPIC NOT IND
[2020-02-06 12:32] LABS: CULTURE INDICATED? NO
[2020-02-06 13:25] VITALS: BP 113/70
[2020-02-06 19:10] VITALS: BP 131/73
[2020-02-06] MEDS: LIDODERM REMOVE PATCH NOTE XX SCH (20:00)
[2020-02-06] MEDS ORDERED: HALOPERIDOL 5 MG/ML IM STA (20:02)
[2020-02-06] MEDS: MIRTAZAPINE 15 MG TABLET PO SCH (20:51)
[2020-02-06] MEDS: ESLICARBAZEPINE ACETATE 600 MG PO SCH (21:00)
[2020-02-07 01:15] VITALS: BP 104/66
[2020-02-07 05:57] LABS: ANION GAP 5 mmol/L (5-15); CALCIUM 8.7 mg/dL (8.5-10.1); CHLORIDE 110 mmol/L (98-107)
[2020-02-07 06:06] LABS: MEAN CORPUSCULAR HEMOGLOBIN 29.8 pg (27.0-34.8); MEAN CORPUSCULAR HGB CONC 33.2 g/dL (32.4-35.8); MEAN CORPUSCULAR VOLUME 89.5 fL (80-100); MEAN PLATELET VOLUME 8.7 fL (7.4-10.4); PLATELET COUNT 260 x10^3/uL (130-400); RED BLOOD COUNT 4.08 x10^6/uL (3.82-5.3); RED CELL DISTRIBUTION WIDTH 13.3 % (9.6-15.2)
[2020-02-07 06:37] LABS: BASOPHILS # (AUTO) 0.03 x10^3/uL (0-0.1); BASOPHILS % (AUTO) 0 % (0-1); EOSINOPHILS # (AUTO) 0.01 x10^3/uL (0-0.4); EOSINOPHILS % (AUTO) 0 % (1-7); LYMPHOCYTES # (AUTO) 3.53 x10^3/uL (1-3.4); LYMPHOCYTES % (AUTO) 58 % (22-44); MD SCAN; MONOCYTES # (AUTO) 0.56 x10^3/uL (0.2-0.8); MONOCYTES % (AUTO) 9 % (2-9); NEUTROPHILS # (AUTO) 1.98 x10^3/uL (1.8-6.8); NEUTROPHILS % (AUTO) 32 % (42-75)
[2020-02-07] MEDS: ENOXAPARIN 40 MG/0.4 ML SQ SCH (08:31)
[2020-02-07] MEDS: CLINDAMYCIN PMX 600MG/50ML 50 ML IV SCH ×2 (08:31→16:32)
[2020-02-07] MEDS: NICOTINE 21 MG/24 HR PATCH.TD24 TD SCH (08:33)
[2020-02-07 09:00] VITALS: BP 104/74
[2020-02-07 14:00] VITALS: BP 120/76
[2020-02-07] MEDS: LIDODERM REMOVE PATCH NOTE XX SCH (20:00)
[2020-02-07] MEDS: ESLICARBAZEPINE ACETATE 600 MG PO SCH (20:40)
[2020-02-08] MEDS: CLINDAMYCIN PMX 600MG/50ML 50 ML IV SCH ×2 (00:08→08:56)
[2020-02-08] MEDS: MIRTAZAPINE 15 MG TABLET PO SCH ×2 (01:47→20:35)
[2020-02-08 01:59] VITALS: BP 124/77
[2020-02-08 07:18] VITALS: BP 84/54
[2020-02-08] MEDS: ENOXAPARIN 40 MG/0.4 ML SQ SCH (08:56)
[2020-02-08] MEDS: NICOTINE 21 MG/24 HR PATCH.TD24 TD SCH (08:57)
[2020-02-08] MEDS: KETOROLAC 30 MG/1 ML IVPush PRN ×2 (11:16→20:35)
[2020-02-08] MEDS: CLINDAMYCIN 150 MG CAPSULE PO SCH ×3 (12:11→21:55)
[2020-02-08] MEDS ORDERED: LEVETIRACETAM 1,000 MG in SODIUM CHLORIDE 0.9% 100 ML IV ONE (13:00)
[2020-02-08 14:15] VITALS: BP 101/68
[2020-02-08] MEDS ORDERED: LORazepam 2 MG/ML, 1ML IVPush PRN (14:30)
[2020-02-08] MEDS ORDERED: PHENOBARBITAL 30 MG TABLET PO SCH (16:00)
[2020-02-08] MEDS: PHENOBARBITAL 30 MG TABLET PO SCH ×2 (17:43→21:55)
[2020-02-08 19:54] VITALS: BP 91/60
[2020-02-08] MEDS: LIDODERM REMOVE PATCH NOTE XX SCH (20:00)
[2020-02-08 21:55] VITALS: BP 111/73
[2020-02-09 01:37] VITALS: BP 90/62
[2020-02-09 07:55] VITALS: BP 92/60
[2020-02-09] MEDS: ENOXAPARIN 40 MG/0.4 ML SQ SCH (09:05)
[2020-02-09] MEDS: CLINDAMYCIN 150 MG CAPSULE PO SCH (09:05)
[2020-02-09] MEDS: PHENOBARBITAL 30 MG TABLET PO SCH (09:06)
[2020-02-09] MEDS: NICOTINE 21 MG/24 HR PATCH.TD24 TD SCH (09:06)
[2020-02-09] MEDS ORDERED: ZIPRASIDONE 20 MG INJ IM PRN (11:00)
[2020-02-09] MEDS ORDERED: ZIPRASIDONE 20 MG INJ IM ONE (11:21)
[2020-02-09] MEDS ORDERED: CLIN150C14 PO (11:45)
[2020-02-09] MEDS ORDERED: PHEN30TA PO (11:45)
[2020-02-09] MEDS ORDERED: MIRT-34 PO (11:45)
[2020-02-09] MEDS ORDERED: CLON1TAB11 PO (11:45)
== END 2020-02-09 12:30 | DRG 384 ==
LOC: ED 01:45 → EDIP 06:43 → 3N 07:10
PROVIDERS: ADMIT Internal Medicine; ATTEND Internal Medicine
DX: S31.119A Laceration without foreign body of abdominal wall, unspecified quadrant without penetration into peritoneal cavity, initial encounter (principal); F33.2 Major depressive disorder, recurrent severe without psychotic features; L03.311 Cellulitis of abdominal wall; E66.01 Morbid (severe) obesity due to excess calories; Z78.1 Physical restraint status; F15.10 Other stimulant abuse, uncomplicated; F17.210 Nicotine dependence, cigarettes, uncomplicated; F41.1 Generalized anxiety disorder; F43.10 Post-traumatic stress disorder, unspecified; F60.9 Personality disorder, unspecified; G40.909 Epilepsy, unspecified, not intractable, without status epilepticus; X78.8XXA Intentional self-harm by other sharp object, initial encounter; Z63.8 Other specified problems related to primary support group; Z65.3 Problems related to other legal circumstances; Z91.14 Patient's other noncompliance with medication regimen; Z91.5 Personal history of self-harm; Z59.0 Homelessness; Z79.899 Other long term (current) drug therapy; Y93.89 Activity, other specified; Y92.89 Other specified places as the place of occurrence of the external cause; Y99.8 Other external cause status; Z68.42 Body mass index [BMI] 45.0-49.9, adult
CPT/HCPCS: 36415; 74177; 80048; 80053; 80307; 81003; 83735; 84100; 84703; 85025; 96374; 96375; G0378; J1650; J1885; J1953; J3486; Q0162; J1630

== ENCOUNTER 2020-04-09 15:26 | Emergency (ER) | payer OTHER, MEDICAID ==
[~2020-04-09] VITALS: Ht 160 cm; Wt 100.0 kg
[~2020-04-09 15:26] MED LIST changes: +CLIN150C14 PO; +CLON1TAB11 PO; +MIRT-34 PO; +MULT-449 PO; -MULT1TAB60 PO; +PHEN30TA PO
[2020-04-09 15:29] VITALS: BP 129/68
[2020-04-09] MEDS ORDERED: ZIPR60CA3 PO (15:50)
[2020-04-09] MEDS ORDERED: VENL150T PO (15:50)
[2020-04-09] MEDS ORDERED: ACET-1600 PO (15:50)
[2020-04-09] MEDS ORDERED: PHEN97.2 PO (15:50)
[2020-04-09] MEDS ORDERED: CALC500T29 PO (15:50)
--- NOTE | 2020-04-09 16:58 | NUR ---
PT REPORT TO LIV OBRIEN RN. PT CARE TRANSFERRED. PT AWAITING CLEARANCE OF C-COLLAR. OFFICER IN ROOM.
--- NOTE | 2020-04-09 17:11 | NUR ---
BREAK RN: CERVICAL SPINE XRAY RESULTED. NO EVIDENCE OF FRACTURE, COLLAR REMOVED. US TECH AT BEDSIDE.
--- NOTE | 2020-04-09 17:35 | NUR ---
U/S AT BS. OFFICERS IN ROOM.
--- NOTE | 2020-04-09 18:07 | NUR ---
BREAK RN Patient/Caregiver given discharge instructions and they have confirmed that they understand the instructions. Patient ambulatory with steady gait.
== END 2020-04-09 18:08 | disposition home or self-care (01) ==
LOC: ED 17:11
DX: S16.1XXA Strain of muscle, fascia and tendon at neck level, initial encounter (principal); T14.91XA Suicide attempt, initial encounter; F32.9 Major depressive disorder, single episode, unspecified; F17.200 Nicotine dependence, unspecified, uncomplicated; X83.8XXA Intentional self-harm by other specified means, initial encounter; Y93.89 Activity, other specified; Y92.148 Other place in prison as the place of occurrence of the external cause; Y99.8 Other external cause status
CPT/HCPCS: 72125; 93880; 99285

== ENCOUNTER 2020-04-13 02:04 | Inpatient (IN) | payer OTHER, MEDICAID ==
[~2020-04-13] VITALS: Ht 160 cm; Wt 127.5 kg
[~2020-04-13 02:04] MED LIST changes: +ACET-1600 PO; +CALC500T29 PO; -MULT-449 PO; +MULT1TAB60 PO; +PHEN97.2 PO; +VENL150T PO; +ZIPR60CA3 PO
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
[2020-04-13] MEDS ORDERED: PIPERACILLIN/TAZO/PMX 3.375GM 50 ML IV ONE (02:30)
[2020-04-13] MEDS ORDERED: SODIUM CHLORIDE FLUSH 10ML SYR IVF ONE (02:30)
[2020-04-13] MEDS ORDERED: VANCOMYCIN PER PHARMACY MC PRN ×2 (02:30→04:30)
[2020-04-13] MEDS ORDERED: SODIUM CHLORIDE 0.9% 1,000ML IVBOLUS ONE (02:30)
[2020-04-13] MEDS ORDERED: PIPERACILLIN/TAZO/PMX 3.375GM 50 ML ONE (02:34)
--- NOTE | 2020-04-13 02:40 | NUR ---
PT TO DECON ROOM AT THIS TIME W/ TECH AND OFFICERS FOR SAFETY.
--- NOTE | 2020-04-13 02:42 | NUR ---
LAB AT BEDSIDE FOR DRAW AND CULTURES AT THIS TIME
[2020-04-13 02:52] LABS: BASOPHILS # (AUTO) 0.04 x10^3/uL (0-0.1); BASOPHILS % (AUTO) 0 % (0-1); EOSINOPHILS # (AUTO) 0.07 x10^3/uL (0-0.4); EOSINOPHILS % (AUTO) 1 % (1-7); LYMPHOCYTES # (AUTO) 2.08 x10^3/uL (1-3.4); LYMPHOCYTES % (AUTO) 20 % (22-44); MD NO; MEAN CORPUSCULAR HEMOGLOBIN 29.7 pg (27.0-34.8); MEAN CORPUSCULAR HGB CONC 33.7 g/dL (32.4-35.8); MEAN CORPUSCULAR VOLUME 88.2 fL (80-100); MEAN PLATELET VOLUME 10.1 fL (7.4-10.4); MONOCYTES # (AUTO) 0.94 x10^3/uL (0.2-0.8); MONOCYTES % (AUTO) 9 % (2-9); NEUTROPHILS # (AUTO) 7.34 x10^3/uL (1.8-6.8); NEUTROPHILS % (AUTO) 70 % (42-75); PLATELET COUNT 205 x10^3/uL (130-400); RED BLOOD COUNT 4.21 x10^6/uL (3.82-5.3); RED CELL DISTRIBUTION WIDTH 14.7 % (9.6-15.2)
[2020-04-13] MEDS ORDERED: VANCOMYCIN 2,000 MG in SODIUM CHLORIDE 0.9% 500 ML IV ONE (03:00)
[2020-04-13 03:10] LABS: ALANINE AMINOTRANSFERASE 30 U/L (12-78); ALBUMIN 3.3 g/dL (3.4-5.0); ANION GAP 5 mmol/L (5-15); CALCIUM 8.2 mg/dL (8.5-10.1); CHLORIDE 110 mmol/L (98-107); CREATININE 0.82 mg/dL (0.55-1.02)
[2020-04-13 03:15] LABS: ALKALINE PHOSPHATASE 78 U/L (45-117); BILIRUBIN,TOTAL 0.2 mg/dL (0.2-1.0); TOTAL PROTEIN 7.1 g/dL (6.4-8.2)
--- NOTE | 2020-04-13 03:17 | NUR ---
PIV STARTED, PT MEDICATED PER DEC. NAD. LAW ENFORCEMENT AT BEDSIDE FOR SAFETY
[2020-04-13] MEDS ORDERED: SODIUM CHLORIDE 0.9% 1,000 ML IV SCH (04:18)
[2020-04-13] MEDS ORDERED: ACETAMINOPHEN 500 MG TABLET ONE (04:28)
[2020-04-13] MEDS ORDERED: ACETAMINOPHEN 325 MG TABLET PO PRN (04:30)
[2020-04-13] MEDS ORDERED: hydrALAzine 20 MG/ML, 1ML IVPush PRN (04:30)
[2020-04-13] MEDS ORDERED: ACETAMINOPHEN 500 MG TABLET PO ONE (04:30)
[2020-04-13] MEDS ORDERED: OXYcodone/APAP 5/325MG TABLET PO PRN (04:30)
[2020-04-13] MEDS ORDERED: ONDANSETRON 2MG/ML, 2ML IVPush PRN (04:30)
--- NOTE | 2020-04-13 04:33 | NUR ---
PT UP TO RESTROOM WITH LAW [employer]CEMENT FOR SAFETY. PT HAS STEADY GAIT
[2020-04-13] MEDS ORDERED: CALCIUM CARBONATE 500 MG TABLET PO PRN (05:00)
--- NOTE | 2020-04-13 05:39 | NUR ---
REPORT TO FLOOR RN PT READY FOR TRANSFER TO FLOOR
[2020-04-13 05:56] VITALS: BP 107/72
[2020-04-13] MEDS ORDERED: PHARMACOKINETIC MONITORING MC PRN (06:30)
[2020-04-13 07:10] VITALS: BP 99/69
[2020-04-13 08:06] LABS: MICROSCOPIC NOT IND
[2020-04-13] MEDS: PHENOBARBITAL 30 MG TABLET PO SCH ×2 (08:49→16:00)
[2020-04-13] MEDS: PIPERACILLIN/TAZO/PMX 3.375GM 50 ML IV SCH ×2 (08:50→15:00)
[2020-04-13] MEDS ORDERED: VENLAFAXINE 75 MG CAP ER PO SCH (09:00)
[2020-04-13] MEDS ORDERED: ZIPRASIDONE 20MG CAPSULE PO SCH (09:00)
[2020-04-13 14:01] VITALS: BP 132/73
[2020-04-13] MEDS ORDERED: VANCOMYCIN 2,000 MG in SODIUM CHLORIDE 0.9% 500 ML IV SCH (15:00)
[2020-04-13] MEDS ORDERED: LEVO750T26 PO (15:03)
[2020-04-13] MEDS ORDERED: METR500T PO (15:03)
[2020-04-13] MEDS ORDERED: ZIPRASIDONE 20 MG INJ IM ONE (15:35)
[2020-04-13] MEDS ORDERED: MIRTAZAPINE 15 MG TABLET PO SCH (21:00)
== END 2020-04-13 17:22 | DRG 872 ==
LOC: ED 02:31 → EDIP 03:46 → 4WST 05:50
PROVIDERS: ADMIT Internal Medicine; ATTEND Internal Medicine
DX: A41.9 Sepsis, unspecified organism (principal); L03.311 Cellulitis of abdominal wall; R45.851 Suicidal ideations; Z68.42 Body mass index [BMI] 45.0-49.9, adult; E66.01 Morbid (severe) obesity due to excess calories; F32.9 Major depressive disorder, single episode, unspecified; F41.9 Anxiety disorder, unspecified; F60.3 Borderline personality disorder; G40.909 Epilepsy, unspecified, not intractable, without status epilepticus; G89.29 Other chronic pain; J44.9 Chronic obstructive pulmonary disease, unspecified; M54.9 Dorsalgia, unspecified; B18.2 Chronic viral hepatitis C; Z90.49 Acquired absence of other specified parts of digestive tract; Z79.899 Other long term (current) drug therapy; Z88.1 Allergy status to other antibiotic agents; Z88.8 Allergy status to other drugs, medicaments and biological substances
CPT/HCPCS: 36415; 80053; 81003; 83605; 84145; 84703; 85025; 87040; 99291; G0378; J2543; J3370; J3486; J7030; J7040

== ENCOUNTER 2020-04-29 18:36 | Emergency (ER) | payer MEDICAID, OTHER ==
[~2020-04-29] VITALS: Ht 160 cm; Wt 120.0 kg
[~2020-04-29 18:36] MED LIST changes: +LEVO750T26 PO; +METR500T PO; +MULT-449 PO; -MULT1TAB60 PO
--- NOTE | 2020-04-29 19:04 | NUR ---
TASK RN: ERP AT BEDSIDE FOR EVAL. Addendum: 04/29/20 at 1906 by MARQUIS TASK RN: ERP AT BEDSIDE FOR EVAL. AV
[2020-04-29] MEDS ORDERED: LIDOCAINE 1%-EPI 1:100K, 20ML INFIL ONE (19:30)
[2020-04-29] MEDS ORDERED: LIDOCAINE 1%-EPI 1:100K, 20ML ONE (19:46)
--- NOTE | 2020-04-29 19:51 | NUR ---
in room for sutures. as
[2020-04-29] MEDS ORDERED: NEOSPORIN OINT. PKT 1 PACKET ONE (20:25)
[2020-04-29 20:33] VITALS: BP 125/91
--- NOTE | 2020-04-29 20:33 | NUR ---
sutures by lisset. wound dressed/bacitracin. plan for dc. vss. as
== END 2020-04-29 20:52 | disposition home or self-care (01) ==
LOC: ED 20:33
DX: S31.119A Laceration without foreign body of abdominal wall, unspecified quadrant without penetration into peritoneal cavity, initial encounter (principal); W26.9XXA Contact with unspecified sharp object(s), initial encounter; Y93.89 Activity, other specified; Y92.89 Other specified places as the place of occurrence of the external cause; Y99.8 Other external cause status
CPT/HCPCS: 12035; 99284

== ENCOUNTER 2020-05-04 12:50 | Emergency (ER) | payer OTHER, MEDICAID ==
[~2020-05-04] VITALS: Ht 160 cm; Wt 124.0 kg
[2020-05-04 12:52] VITALS: BP 88/45
[2020-05-04] MEDS ORDERED: LIDOCAINE 1%-EPI 1:100K, 20ML ONE (13:07)
--- NOTE | 2020-05-04 13:29 | NUR ---
PT CALM, COOPERATIVE AT THIS TIME. 3 ENFORCEMENT OFFICERS AT BEDSIDE. WOUND CLEANED, ALL OLD SUTURES REMOVED. PT TOLERATED WELL. ERP AT BEDSIDE FOR REPAIR AT THIS TIME.
[2020-05-04] MEDS ORDERED: LIDOCAINE-MPF 1%, 5ML INFIL ONE (13:30)
[2020-05-04] MEDS ORDERED: NEOSPORIN OINT. PKT 1 PACKET ONE (13:54)
== END 2020-05-04 14:19 | disposition home or self-care (01) ==
LOC: ED 13:21
DX: S31.119A Laceration without foreign body of abdominal wall, unspecified quadrant without penetration into peritoneal cavity, initial encounter (principal); R94.31 Abnormal electrocardiogram [ECG] [EKG]; X58.XXXA Exposure to other specified factors, initial encounter; Y93.89 Activity, other specified; Y92.89 Other specified places as the place of occurrence of the external cause; Y99.8 Other external cause status
CPT/HCPCS: 12034; 93005; 99284